=== PATIENT | male | born 1970 | race Two or more races ===

== ENCOUNTER 2017-03-13 10:08 | Inpatient (IN) | payer OTHER ==
[2017-03-13 12:10] VITALS: BMI 23.7
--- NOTE | 2017-03-13 15:49 | HP ---
CIWA Score - CIWA Score Nausea/Vomitin Muscle Tremors: 3 Anxiety: 3 Agitation: 4-Moderately Restless Paroxysmal Sweats: 3 Orientation: 0-Oriented Tacttile Disturbances: 2-Mild Itch/Numbness/Burn Auditory Disturbances: 2-Mild Harshness/Frighten Visual Disturbances: 2-Mild Sensitivity Headache: 3-Moderate CIWA-Ar Total Score: 27 Admission ROS [facility] - HPI Chief Complaint: "I'm here to get help and to become a better person." Pt. is here to Detox from Alcohol. Allergies/Adverse Reactions: Allergies Allergy/AdvReac Type Severity Reaction Status Date / Time Fish Containing Products Allergy Severe Rash Verified 03/13/17 14:00 NKDA Allergy Uncoded 03/13/17 14:00 History of Present Illness: Pt. is a 46 YO male here to detox from Alcohol. This is pt.'s first Detox admission to [facility]. Exam Limitations: No Limitations - Ebola screening Have you traveled outside of the country in the last 21 days: No Have you had contact with anyone from an Ebola affected area: No Have you been sick,other than usual withdrawal symptoms: No Do you have a fever: No - Review of Systems Constitutional: Chills, Diaphoresis, Fever, Malaise, Night Sweats, Changes in sleep EENT: reports: Blurred Vision, Recent change in vision, Nose Congestion, Sinus Pressure, Dental Problems (Missing 1 tooth (upper mouth).) Respiratory: reports: SOB with Exertion Cardiac: reports: Palpitations GI: reports: Diarrhea, Nausea, Indigestion, Abdominal cramping : reports: No Symptoms Reported Musculoskeletal: reports: Back Pain, Joint Pain (Left knee (X approx. 1 year, pt. uncertain why).), Joint Stiffness (Left knee (X approx. 1 year, pt. uncertain why).) Integumentary: reports: No Symptoms Reported Neuro: reports: Headache, Numbness (Left ankle and toes.), Tingling (Left ankle and toes.), Tremors Endocrine: reports: No Symptoms Reported Hematology: reports: Easy Bruising Psychiatric: reports: Judgement Intact, Mood/Affect Appropiate, Orientated x3, Anxious, Depressed (On med.) Other Systems: Reviewed and Negative Patient History - Patient Medical History Hx Anemia: No Hx Asthma: Yes (Uses Albuterol Inhaler.) Hx Chronic Obstructive Pulmonary Disease (COPD): No Hx Cancer: No Hx Cardiac Disorders: No Hx Congestive Heart Failure: No Hx Hypertension: Yes (On med.) Hx Hypercholesterolemia: No Hx Pacemaker: No HX Cerebrovascular Accident: No Hx Seizures: No Hx Dementia: No Hx Diabetes: Yes (NIDDM) Hx Gastrointestinal Disorders: No Hx Liver Disease: No Hx Genitourinary Disorders: No Hx Sexually Transmitted Disorders: Yes (gonorrhea at age 14; Treated.) Hx Renal Disease (ESRD): No Hx Thyroid Disease: No Hx Human Immunodeficiency Virus (HIV): No (Last Tested: 02/2017: NEGATIVE.) Hx Hepatitis C: No (Last Tested Approx. 2 years ago: NEGATIVE.) Hx Depression: Yes (On meds.) Hx Suicide Attempt: Yes (cut left arm a year ago; PATIENT DENIES CURRENT SI / HI.) Hx Bipolar Disorder: Yes (On med.) Hx Schizophrenia: Yes (On med.) - Patient Surgical History Past Surgical History: No Hx Neurologic Surgery: No Hx Cataract Extraction: No Hx Cardiac Surgery: No Hx Lung Surgery: No Hx Breast Surgery: No Hx Breast Biopsy: No Hx Abdominal Surgery: No Hx Appendectomy: No Hx Cholecystectomy: No Hx Genitourinary Surgery: No Hx Section: No Hx Orthopedic Surgery: No Anesthesia Reaction: No - PPD History Previous Implant?: Yes Documented Results: Negative w/o proof Implanted On Prior R Admission?: No PPD to be Administered?: Yes - Reproductive History Patient is a Female of Child Bearing Age (11 -55 yrs old): No (PATIENT IS MALE.) - Smoking Cessation Smoking history: Current every day smoker Have you smoked in the past 12 months: Yes Aproximately how many cigarettes per day: 20 Cigars Per Day: 0 Hx Chewing Tobacco Use: No Initiated information on smoking cessation: Yes 'Breaking Loose' booklet given: 03/13/17 (GIVEN ON UNIT.) - Substance & Tx. History Hx Alcohol Use: Yes Hx Substance Use: Yes Substance Use Type: Alcohol, Cocaine Hx Substance Use Treatment: Yes (1 Previous Detox admission at [facility] (2017).) - Substances Abused Crack Route: Smoking Frequency: Daily Amount used: $80-100 Age of first use: 45 Date of Last Use: 03/13/17 Alcohol-beer/tri Route: Oral Frequency: Daily Amount used: 1-6 pk./1 pt. Age of first use: 15 Date of Last Use: 03/13/17 Family Disease History - Family Disease History Family Disease History: Diabetes: Grandparent (Arthritis.), Father (Anemia, .), Sister, Other: Grandparent, Father, Mother (Arthritis.) Admission Physical Exam [facility] - Vital Signs Vital Signs: Vital Signs - 24 hr 03/13/17 12:08 Temperature 98 F Pulse Rate 102 H Respiratory 20 Rate Blood Pressure 143/92 - Physical General Appearance: Yes: Appropriately Dressed, Mild Distress, Thin, Tremorous, Sweating, Anxious HEENTM: Yes: Hearing grossly Normal, Normocephalic, Normal Voice, NADIRA, Pharynx Normal Respiratory: Yes: Chest Non-Tender, Lungs Clear, No Respiratory Distress Neck: Yes: No masses,lesions,Nodules, Supple, Trachea in good position Breast: Yes: Breast Exam Deferred Cardiology: Yes: Regular Rhythm, Regular Rate, S1, S2 Abdominal: Yes: Normal Bowel Sounds, Non Tender, Flat, Soft Genitourinary: Yes: Within Normal Limits Back: Yes: Decreased Range of Motion, Vertebral Tenderness Musculoskeletal: Yes: Gait Steady, Back pain, Joint Stiffness (Left knee.) Extremities: Yes: Tremors Neurological: Yes: Fully Oriented, Alert, Normal Mood/Affect, Normal Response Integumentary: Yes: Normal Color, Warm Lymphatic: Yes: Within Normal Limits - Diagnostic (1) Alcohol dependence with uncomplicated withdrawal Current Visit: Yes Status: Acute (2) Cocaine dependence, uncomplicated Current Visit: Yes Status: Acute (3) Hypertension Current Visit: Yes Status: Chronic Qualifiers: Hypertension type: essential hypertension Qualified Code(s): I10 - Essential (primary) hypertension (4) Type 2 diabetes mellitus Current Visit: Yes Status: Chronic Qualifiers: Diabetes mellitus complication status: with unspecified complications Diabetes mellitus parts counterman insulin use: without parts counterman use Qualified Code(s): E11.8 - Type 2 diabetes mellitus with unspecified complications (5) Nicotine dependence Current Visit: Yes Status: Chronic Qualifiers: Nicotine product type: cigarettes Substance use status: uncomplicated Qualified Code(s): F17.210 - Nicotine dependence, cigarettes, uncomplicated (6) Asthma Current Visit: Yes Status: Chronic Qualifiers: Asthma severity: mild intermittent Asthma complication type: uncomplicated Qualified Code(s): J45.20 - Mild intermittent asthma, uncomplicated (7) History of bipolar disorder Current Visit: Yes Status: Chronic (8) History of schizophrenia Current Visit: Yes Status: Chronic Cleared for Admission [facility] - Detox or Rehab [facility] Level of Care: Medically Managed Detox Regimen/Protocol: Librium [facility] Breath Alcohol Content Breath Alcohol Content: 0 Urine Drug Screen - Results Drug Screen Negative: No Urine Drug Screen Results: ELIECER-Cocaine, BZO-Benzodiazepines
[2017-03-13] MEDS ORDERED: ACETAMINOPHEN 325 MG TABLET (FP) PO PRN (16:34)
[2017-03-13] MEDS ORDERED: NICOTINE POLACRILEX 2 MG GUM BC PRN (16:34)
[2017-03-13] MEDS ORDERED: P-EPHED 60MG/TRIPROLIDI 2.5MG TABLET PO PRN (16:34)
[2017-03-13] MEDS ORDERED: chlordiazePOXIDE HCL 25 MG CAPSULE PO PRN (16:34)
[2017-03-13] MEDS ORDERED: MAGNESIUM CITRATE 300 ML BOTTLE PO PRN (16:34)
[2017-03-13] MEDS ORDERED: MAG HYDROX/AL HYDROX/SIMETH 30 ML UNIT-DOSE CUP PO PRN (16:34)
[2017-03-13] MEDS ORDERED: MENTHOL/PHENOL 1 EACH UD MM PRN (16:34)
[2017-03-13] MEDS ORDERED: LOPERAMIDE HCL 2 MG CAPSULE PO PRN (16:34)
[2017-03-13] MEDS ORDERED: guaiFENesin/D-METHORPHAN HB 10 ML UNIT-DOSE CUPS PO PRN (16:34)
[2017-03-13] MEDS ORDERED: hydrOXYzine PAMOATE 50 MG CAPSULE (FP) PO PRN (16:34)
[2017-03-13] MEDS ORDERED: MAGNESIUM HYDROX 2400MG/30ML ORAL SUSPENSION 30 ML CUP PO PRN (16:34)
[2017-03-13] MEDS ORDERED: IBUPROFEN 400 MG TABLET (FP) PO PRN (16:34)
[2017-03-13] MEDS ORDERED: ALBUTEROL SO4 6.7 GM HFA INHALER IH PRN (16:40)
[2017-03-13] MEDS ORDERED: ARTIFICIAL TEARS (POLYVINYL ALCOHOL 1.4%) OPTH DROPS OU PRN (16:45)
[2017-03-13] MEDS ORDERED: chlordiazePOXIDE HCL 25 MG CAPSULE PO ONE (17:45)
[2017-03-13] MEDS ORDERED: LIDOCAINE 5% TOPICAL PATCH TP ONE (17:45)
[2017-03-13] MEDS: chlordiazePOXIDE HCL 25 MG CAPSULE PO SCH ×2 (18:01→22:58)
[2017-03-13] MEDS: NICOTINE 21 MG/24 HOURS TOPICAL PATCH TD SCH (18:02)
[2017-03-13] MEDS: LISINOPRIL 20 MG TABLET (FP) PO SCH (18:03)
[2017-03-13] MEDS ORDERED: LIDOCAINE PATCH REMOVAL MC ONE (22:00)
[2017-03-13] MEDS: diphenhydrAMINE HCL 50 MG CAPSULE PO PRN (22:17)
[2017-03-13] MEDS: THIAMINE HCL 100 MG TABLET (FP) PO SCH (22:17)
[2017-03-13 22:28] LABS: URINE APPEARANCE CLEAR; URINE BILIRUBIN NEGATIVE (NEGATIVE); URINE BLOOD NEGATIVE (NEGATIVE); URINE COLOR LTYELLOW; URINE GLUCOSE (UA) 3+ (NEGATIVE); URINE KETONE NEGATIVE (NEGATIVE); URINE LEUK ESTERASE NEGATIVE (NEGATIVE); URINE NITRITE NEGATIVE (NEGATIVE); URINE PROTEIN NEGATIVE (NEGATIVE); URINE UROBILINOGEN NEGATIVE E.U./dl (0.2-1.0)
[2017-03-14] MEDS: chlordiazePOXIDE HCL 25 MG CAPSULE PO SCH ×4 (06:22→22:25)
[2017-03-14] MEDS: INSULIN SLIDING SCALE (NOVOLOG) 1 VIAL SQ SCH ×2 (06:49→16:55)
[2017-03-14] MEDS: metFORMIN HCL 500 MG TABLET (FP) PO SCH ×2 (06:49→16:55)
[2017-03-14 09:57] LABS: MCH 30.4 pg (25.7-33.7); MCHC 33.6 g/dl (32.0-35.9); MEAN CELL VOLUME 90.5 fl (80-96); MEAN PLT VOLUME 9.6 fl (7.5-11.1); PLATELET COUNT 214 K/MM3 (134-434); RDW 12.9 % (11.9-15.9); WHITE BLOOD COUNT 10.7 K/mm3 (4.0-10.0)
[2017-03-14 10:36] LABS: ALBUMIN 4.2 g/dl (3.4-5.0); ALK PHOS 88 U/L (45-117); ANION GAP 13 (8-16); BILIRUBIN,TOTAL 0.6 mg/dL (0.2-1.0); CALCIUM 9.5 mg/dL (8.5-10.1); CO2 26 mmol/L (21-32); COCKROFT - GAULT 108.81; CREATININE 1.1 mg/dL (0.7-1.3); GLUCOSE,RANDOM 288 mg/dL (74-106); SGOT/AST 14 U/L (15-37); SGPT/ALT 25 U/L (12-78); TOT PROT 7.2 g/dl (6.4-8.2)
[2017-03-14] MEDS: NICOTINE 21 MG/24 HOURS TOPICAL PATCH TD SCH (10:46)
[2017-03-14] MEDS: LISINOPRIL 20 MG TABLET (FP) PO SCH (10:47)
[2017-03-14] MEDS: PRENATAL VITAMINS W/ FOLIC ACID TABLET (FP) PO SCH (10:50)
--- NOTE | 2017-03-14 11:17 | CONSULT ---
[facility] Psychiatric Consult - Data Date of interview: 03/14/17 Admission source: [facility] Identifying data: First admission to [facility] for this 46 y/o [place] male seeking detox treatment for alcohol and cocaine (crack) dependence.Patient is single,a father of an undetermined number of children,domiciled,unemployed and supported on SSI benefits. Substance Abuse History: - Smoking Cessation. Smoking history: Current every day smoker. Have you smoked in the past 12 months: Yes. Aproximately how many cigarettes per day: 20. Cigars Per Day: 0. Hx Chewing Tobacco Use: No. Initiated information on smoking cessation: Yes. 'Breaking Loose' booklet given : 03/13/17 (GIVEN ON UNIT.). - Substance & Tx. History. Hx Alcohol Use: Yes. Hx Substance Use: Yes. Substance Use Type: Alcohol, Cocaine. Hx Substance Use Treatment: Yes (1 Previous Detox admission at [facility] (2017).). - Substances Abused. Crack. Route: Smoking. Frequency: Daily. Amount used: $80-100. Age of first use: 45. Date of Last Use: 03/13/17. Alcohol-beer/tri. Route: Oral. Frequency: Daily. Amount used: 1-6 pk./1 pt. Age of first use: 15. Date of Last Use: 03/13/17. Confirmed by patient. Medical History: Hypertension,arthritis,diabetes mellitus,scoliosis,bronchial asthma and a history of treatment for gonorrhea (during adolescence). Psychiatric History: Patient denies history of psychiatric hospitalizations.Known to [facility].Mr Vanessa indicates past treatment with amitryptiline 100 mg/hs.Diagnosed with MDD and insomnia.Non-adherent to [facility] care.Patient admits to a history of suicide attempts via self-mutilation ( cutting). Physical/Sexual Abuse/Trauma History: Patient denies history of sexual abuse.He reports a history of 22 consecutive years in detention (homicide) from age 17 to age 39.Traumatized by his years of incarceration. Additional Comment: Urine Drug Screen Results: ELIECER-Cocaine, BZO- Benzodiazepines.Noted. Mental Status Exam - Mental Status Exam Alert and Oriented to: Time, Place, Person Cognitive Function: Good Patient Appearance: Well Groomed (tall stature,tattoos over arms,neck) Mood: Anxious, Apprehensive Affect: Mood Congruent Patient Behavior: Fatigued, Appropriate, Cooperative Speech Pattern: Clear Voice Loudness: Normal Thought Process: Goal Oriented Thought Disorder: Not Present Hallucinations: Denies Suicidal Ideation: Denies Homicidal Ideation: Denies Insight/Judgement: Poor Sleep: Poorly, Difficulty falling asleep Appetite: Good Muscle strength/Tone: Normal Gait/Station: Normal Psychiatric Findings - Problem List ([place] 1, 2,3) (1) Alcohol dependence with uncomplicated withdrawal Current Visit: Yes Status: Acute (2) Cocaine dependence, uncomplicated Current Visit: Yes Status: Acute (3) Nicotine dependence Current Visit: Yes Status: Acute Qualifiers: Nicotine product type: cigarettes Substance use status: uncomplicated Qualified Code(s): F17.210 - Nicotine dependence, cigarettes, uncomplicated (4) Substance induced mood disorder Current Visit: Yes Status: Acute (5) History of bipolar disorder Current Visit: Yes Status: Chronic (6) Asthma Current Visit: Yes Status: Chronic Qualifiers: Asthma severity: mild intermittent Asthma complication type: uncomplicated Qualified Code(s): J45.20 - Mild intermittent asthma, uncomplicated (7) Hypertension Current Visit: Yes Status: Chronic Qualifiers: Hypertension type: essential hypertension Qualified Code(s): I10 - Essential (primary) hypertension (8) Type 2 diabetes mellitus Current Visit: Yes Status: Chronic Qualifiers: Diabetes mellitus complication status: with unspecified complications Diabetes mellitus watermelon inspector insulin use: without group home use Qualified Code(s): E11.8 - Type 2 diabetes mellitus with unspecified complications; Z79.4 - intermediate accountant (current) use of insulin (9) Insomnia Current Visit: Yes Status: Acute - Initial Treatment Plan Initial Treatment Plan: Psychoeducation.Detoxification.Medication : amitriptyline 50 mg po hs.Ordered.Side effects/benefits discussed with patient.He us in agreement with this careplan.Observation.
--- NOTE | 2017-03-14 11:41 | EKG ---
Test Reason : Blood Pressure : / mmHG Vent. Rate : 077 BPM Atrial Rate : 077 BPM P-R Int : 192 ms QRS Dur : 092 ms QT Int : 358 ms P-R-T Axes : 046 085 056 degrees QTc Int : 405 ms NORMAL SINUS RHYTHM NORMAL ECG NO PREVIOUS ECGS AVAILABLE Confirmed by BERNARDO PEREZ, MAGDA ([id number]) on 03/14/2017 11:41:05 AM Referred By: Confirmed By:MAGDA CHANG MD
--- NOTE | 2017-03-14 12:16 | PN ---
S CIWA - CIWA Score Nausea/Vomitin Muscle Tremors: 3 Anxiety: 4-Mod. Anxious/Guarded Agitation: 3 Paroxysmal Sweats: 2 Orientation: 0-Oriented Tacttile Disturbances: 1-Very Mild Itch/Numbness Auditory Disturbances: 0-None Visual Disturbances: 2-Mild Sensitivity Headache: 0-None Present CIWA-Ar Total Score: 18 S Progress Note (SOAP) Subjective: Nausea, Tremors, Sweating, Body aches. Objective: PT. A & O X 3, OBSERVED AMBULATING ON UNIT. NO ACUTE DISTRESS. 03/14/17 12:13 Vital Signs Temperature 96.6 F L 03/14/17 10:09 Pulse Rate 81 03/14/17 10:09 Respiratory Rate 18 03/14/17 10:09 Blood Pressure 136/88 03/14/17 10:09 O2 Sat by Pulse Oximetry (%) Laboratory Tests 03/13/17 03/13/17 03/14/17 14:23 21:30 06:00 WBC 10.7 H RBC 5.15 Hgb 15.7 Hct 46.6 MCV 90.5 MCHC 33.6 RDW 12.9 Plt Count 214 MPV 9.6 Sodium Potassium Chloride Carbon Dioxide Anion Gap BUN Creatinine Creat Clearance w eGFR POC Glucometer 336 Random Glucose Calcium Total Bilirubin AST ALT Alkaline Phosphatase Total Protein Albumin Urine Color Ltyellow Urine Appearance Clear Urine pH 5.0 Urine Protein Negative Urine Glucose (UA) 3+ H Urine Ketones Negative Urine Blood Negative Urine Nitrite Negative Urine Bilirubin Negative Urine Urobilinogen Negative Ur Leukocyte Esterase Negative 03/14/17 03/14/17 06:00 06:14 WBC RBC Hgb Hct MCV MCHC RDW Plt Count MPV Sodium 137 Potassium 4.0 Chloride 98 Carbon Dioxide 26 Anion Gap 13 BUN 10 Creatinine 1.1 Creat Clearance w eGFR > 60 POC Glucometer 447 Random Glucose 288 H Calcium 9.5 Total Bilirubin 0.6 AST 14 L ALT 25 Alkaline Phosphatase 88 Total Protein 7.2 Albumin 4.2 Urine Color Urine Appearance Urine pH Urine Protein Urine Glucose (UA) Urine Ketones Urine Blood Urine Nitrite Urine Bilirubin Urine Urobilinogen Ur Leukocyte Esterase LABS NOTED. Assessment: 03/14/17 12:14 WITHDRAWAL SYMPTOMS. Plan: CONTINUE DETOX.
[2017-03-14 12:37] LABS: SICKLE CELL SCREEN NEGATIVE (NEGATIVE)
[2017-03-14] MEDS ORDERED: INSULIN (NOVOLOG) ASPART 100 UNITS/ML 10ML VIAL ONE (16:48)
[2017-03-14] MEDS: THIAMINE HCL 100 MG TABLET (FP) PO SCH (22:24)
[2017-03-14] MEDS: AMITRIPTYLINE HCL 25 MG TABLET (FP) PO SCH (22:25)
[2017-03-15] MEDS: chlordiazePOXIDE HCL 25 MG CAPSULE PO SCH ×2 (07:56→11:46)
[2017-03-15] MEDS ORDERED: INSULIN (NOVOLOG) ASPART 100 UNITS/ML 10ML VIAL ONE ×2 (08:27→16:32)
[2017-03-15] MEDS: metFORMIN HCL 500 MG TABLET (FP) PO SCH ×2 (08:30→16:37)
[2017-03-15] MEDS: INSULIN SLIDING SCALE (NOVOLOG) 1 VIAL SQ SCH ×2 (08:30→16:36)
[2017-03-15] MEDS: NICOTINE 21 MG/24 HOURS TOPICAL PATCH TD SCH (10:45)
[2017-03-15] MEDS: PRENATAL VITAMINS W/ FOLIC ACID TABLET (FP) PO SCH (11:45)
[2017-03-15] MEDS: LISINOPRIL 20 MG TABLET (FP) PO SCH (11:45)
--- NOTE | 2017-03-15 12:14 | PN ---
[facility] CIWA - CIWA Score Nausea/Vomitin-Mild Nausea/No Vomiting Muscle Tremors: 3 Anxiety: 3 Agitation: 2 Paroxysmal Sweats: 3 Orientation: 0-Oriented Tacttile Disturbances: 2-Mild Itch/Numbness/Burn Auditory Disturbances: 0-None Visual Disturbances: 3-Moderate Sensitivity Headache: 0-None Present CIWA-Ar Total Score: 17 S Progress Note (SOAP) Subjective: Sweating, Anxious, Body Aches. Objective: PT. A & O X 2 (DISORIENTED ABOUT DAY /DATE). NO ACUTE DISTRESS. 03/15/17 12:11 Vital Signs Temperature 96.8 F L 03/15/17 10:12 Pulse Rate 84 03/15/17 10:12 Respiratory Rate 18 03/15/17 10:12 Blood Pressure 121/75 03/15/17 10:12 O2 Sat by Pulse Oximetry (%) Laboratory Tests 03/13/17 03/13/17 03/14/17 14:23 21:30 06:00 WBC 10.7 H RBC 5.15 Hgb 15.7 Hct 46.6 MCV 90.5 MCHC 33.6 RDW 12.9 Plt Count 214 MPV 9.6 Sickle Cell Screen Negative Sodium Potassium Chloride Carbon Dioxide Anion Gap BUN Creatinine Creat Clearance w eGFR POC Glucometer 336 Random Glucose Calcium Total Bilirubin AST ALT Alkaline Phosphatase Total Protein Albumin Urine Color Ltyellow Urine Appearance Clear Urine pH 5.0 Ur Specific [place] 1.010 Urine Protein Negative Urine Glucose (UA) 3+ H Urine Ketones Negative Urine Blood Negative Urine Nitrite Negative Urine Bilirubin Negative Urine Urobilinogen Negative Ur Leukocyte Esterase Negative RPR Titer 03/14/17 03/14/17 03/14/17 06:00 06:00 06:14 WBC RBC Hgb Hct MCV MCHC RDW Plt Count MPV Sickle Cell Screen Sodium 137 Potassium 4.0 Chloride 98 Carbon Dioxide 26 Anion Gap 13 BUN 10 Creatinine 1.1 Creat Clearance w eGFR > 60 POC Glucometer 447 Random Glucose 288 H Calcium 9.5 Total Bilirubin 0.6 AST 14 L ALT 25 Alkaline Phosphatase 88 Total Protein 7.2 Albumin 4.2 Urine Color Urine Appearance Urine pH Ur Specific [place] Urine Protein Urine Glucose (UA) Urine Ketones Urine Blood Urine Nitrite Urine Bilirubin Urine Urobilinogen Ur Leukocyte Esterase RPR Titer Nonreactive 03/14/17 03/15/17 16:18 07:06 WBC RBC Hgb Hct MCV MCHC RDW Plt Count MPV Sickle Cell Screen Sodium Potassium Chloride Carbon Dioxide Anion Gap BUN Creatinine Creat Clearance w eGFR POC Glucometer 353 319 Random Glucose Calcium Total Bilirubin AST ALT Alkaline Phosphatase Total Protein Albumin Urine Color Urine Appearance Urine pH Ur Specific [place] Urine Protein Urine Glucose (UA) Urine Ketones Urine Blood Urine Nitrite Urine Bilirubin Urine Urobilinogen Ur Leukocyte Esterase RPR Titer LABS NOTED. Assessment: 03/15/17 12:14 WITHDRAWAL SYMPTOMS. Plan: CONTINUE DETOX.
[2017-03-15] MEDS: chlordiazePOXIDE 5 MG CAPSULE PO SCH ×2 (16:39→22:43)
[2017-03-15] MEDS: diphenhydrAMINE HCL 50 MG CAPSULE PO PRN (22:37)
[2017-03-15] MEDS: THIAMINE HCL 100 MG TABLET (FP) PO SCH (22:37)
[2017-03-15] MEDS: AMITRIPTYLINE HCL 25 MG TABLET (FP) PO SCH (22:37)
[2017-03-16] MEDS: chlordiazePOXIDE 5 MG CAPSULE PO SCH ×2 (06:19→10:39)
[2017-03-16] MEDS: INSULIN SLIDING SCALE (NOVOLOG) 1 VIAL SQ SCH ×2 (06:58→17:02)
[2017-03-16] MEDS: metFORMIN HCL 500 MG TABLET (FP) PO SCH ×2 (06:58→17:01)
[2017-03-16] MEDS: PRENATAL VITAMINS W/ FOLIC ACID TABLET (FP) PO SCH (10:39)
[2017-03-16] MEDS: LISINOPRIL 20 MG TABLET (FP) PO SCH (10:39)
[2017-03-16] MEDS: NICOTINE 21 MG/24 HOURS TOPICAL PATCH TD SCH (10:39)
--- NOTE | 2017-03-16 13:05 | PN ---
[facility] Progress Note (SOAP) Subjective: Body Aches, Anxious, Sweating. Objective: PT. A & O X 3, OBSERVED AMBULATING ON UNIT. NO ACUTE DISTRESS. PT. DENIES CHEST PAIN. 03/16/17 13:02 Vital Signs Temperature 97.0 F L 03/16/17 10:05 Pulse Rate 96 H 03/16/17 10:05 Respiratory Rate 18 03/16/17 10:05 Blood Pressure 122/83 03/16/17 10:05 O2 Sat by Pulse Oximetry (%) Laboratory Tests 03/13/17 03/13/17 03/14/17 14:23 21:30 06:00 WBC 10.7 H RBC 5.15 Hgb 15.7 Hct 46.6 MCV 90.5 MCHC 33.6 RDW 12.9 Plt Count 214 MPV 9.6 Sickle Cell Screen Negative Sodium Potassium Chloride Carbon Dioxide Anion Gap BUN Creatinine Creat Clearance w eGFR POC Glucometer 336 Random Glucose Calcium Total Bilirubin AST ALT Alkaline Phosphatase Total Protein Albumin Urine Color Ltyellow Urine Appearance Clear Urine pH 5.0 Ur Specific [place] 1.010 Urine Protein Negative Urine Glucose (UA) 3+ H Urine Ketones Negative Urine Blood Negative Urine Nitrite Negative Urine Bilirubin Negative Urine Urobilinogen Negative Ur Leukocyte Esterase Negative RPR Titer 03/14/17 03/14/17 03/14/17 06:00 06:00 06:14 WBC RBC Hgb Hct MCV MCHC RDW Plt Count MPV Sickle Cell Screen Sodium 137 Potassium 4.0 Chloride 98 Carbon Dioxide 26 Anion Gap 13 BUN 10 Creatinine 1.1 Creat Clearance w eGFR > 60 POC Glucometer 447 Random Glucose 288 H Calcium 9.5 Total Bilirubin 0.6 AST 14 L ALT 25 Alkaline Phosphatase 88 Total Protein 7.2 Albumin 4.2 Urine Color Urine Appearance Urine pH Ur Specific [place] Urine Protein Urine Glucose (UA) Urine Ketones Urine Blood Urine Nitrite Urine Bilirubin Urine Urobilinogen Ur Leukocyte Esterase RPR Titer Nonreactive 03/14/17 03/15/17 03/15/17 16:18 07:06 16:23 WBC RBC Hgb Hct MCV MCHC RDW Plt Count MPV Sickle Cell Screen Sodium Potassium Chloride Carbon Dioxide Anion Gap BUN Creatinine Creat Clearance w eGFR POC Glucometer 353 319 409 Random Glucose Calcium Total Bilirubin AST ALT Alkaline Phosphatase Total Protein Albumin Urine Color Urine Appearance Urine pH Ur Specific [place] Urine Protein Urine Glucose (UA) Urine Ketones Urine Blood Urine Nitrite Urine Bilirubin Urine Urobilinogen Ur Leukocyte Esterase RPR Titer 03/16/17 06:09 WBC RBC Hgb Hct MCV MCHC RDW Plt Count MPV Sickle Cell Screen Sodium Potassium Chloride Carbon Dioxide Anion Gap BUN Creatinine Creat Clearance w eGFR POC Glucometer 324 Random Glucose Calcium Total Bilirubin AST ALT Alkaline Phosphatase Total Protein Albumin Urine Color Urine Appearance Urine pH Ur Specific [place] Urine Protein Urine Glucose (UA) Urine Ketones Urine Blood Urine Nitrite Urine Bilirubin Urine Urobilinogen Ur Leukocyte Esterase RPR Titer LABS NOTED. Assessment: 03/16/17 13:03 WITHDRAWAL SYMPTOMS. Plan: CONTINUE DETOX. ADVISED PATIENT TO FOLLOW-UP WITH [facility] AFTER DISCHARGE FROM DETOX FOR GENERAL MEDICAL ASSESSMENT AND FOR FOLLOW-UP CARE OF DIABETES MELLITUS AND HYPERTENSION.
[2017-03-16] MEDS ORDERED: INSULIN (NOVOLOG) ASPART 100 UNITS/ML 10ML VIAL ONE ×2 (17:04→21:56)
[2017-03-16] MEDS: chlordiazePOXIDE HCL 10 MG CAPSULE PO SCH ×2 (17:05→22:00)
--- NOTE | 2017-03-16 19:34 | PN ---
[facility] Progress Note Note: Received report from RN about elevated afternoon AC BGM. Regular Insulin administered (12 Units) according to Sliding Scale Protocol. Additional BGM X 1 with accompanying Regular Insulin Sliding Scale Protocol ordered for 9 PM this evening for F/U. Micah Munson NP
[2017-03-16] MEDS ORDERED: INSULIN SLIDING SCALE (NOVOLOG) 1 VIAL SQ ONE (21:00)
[2017-03-16] MEDS: AMITRIPTYLINE HCL 25 MG TABLET (FP) PO SCH (21:59)
[2017-03-16] MEDS: THIAMINE HCL 100 MG TABLET (FP) PO SCH (21:59)
[2017-03-16] MEDS: diphenhydrAMINE HCL 50 MG CAPSULE PO PRN (22:00)
[2017-03-17] MEDS: chlordiazePOXIDE HCL 10 MG CAPSULE PO SCH (06:28)
[2017-03-17] MEDS: metFORMIN HCL 500 MG TABLET (FP) PO SCH (06:29)
[2017-03-17 06:30] VITALS: BP 125/81; PULSE 92; TEMP 98.2
[2017-03-17] MEDS: INSULIN SLIDING SCALE (NOVOLOG) 1 VIAL SQ SCH (06:30)
[2017-03-17] MEDS ORDERED: INSULIN (NOVOLOG) ASPART 100 UNITS/ML 10ML VIAL ONE (06:31)
--- NOTE | 2017-03-17 13:44 | DS ---
[facility] Detox Discharge Summary Admission Date: 03/13/17 Discharge Date: 03/17/17 - History Present History: Alcohol Dependence, Cocaine Dependence Additional Comments: ADVISED PATIENT TO FOLLOW-UP WITH [facility] AFTER DISCHARGE FROM DETOX FOR GENERAL MEDICAL ASSESSMENT. Pertinent Past History: Asthma, NIDDM, HTN, Depression, Bipolar Disorder, Schizophrenia. - Physical Exam Results Vital Signs: Vital Signs Temperature 98.2 F 03/17/17 06:29 Pulse Rate 92 H 03/17/17 06:29 Respiratory Rate 18 03/17/17 06:29 Blood Pressure 125/81 03/17/17 06:29 O2 Sat by Pulse Oximetry (%) Pertinent Admission Physical Exam Findings: WITHDRAWAL SYMPTOMS. Laboratory Tests 03/13/17 03/13/17 03/14/17 14:23 21:30 06:00 WBC 10.7 H RBC 5.15 Hgb 15.7 Hct 46.6 MCV 90.5 MCHC 33.6 RDW 12.9 Plt Count 214 MPV 9.6 Sickle Cell Screen Negative Sodium Potassium Chloride Carbon Dioxide Anion Gap BUN Creatinine Creat Clearance w eGFR POC Glucometer 336 Random Glucose Calcium Total Bilirubin AST ALT Alkaline Phosphatase Total Protein Albumin Urine Color Ltyellow Urine Appearance Clear Urine pH 5.0 Ur Specific [place] 1.010 Urine Protein Negative Urine Glucose (UA) 3+ H Urine Ketones Negative Urine Blood Negative Urine Nitrite Negative Urine Bilirubin Negative Urine Urobilinogen Negative Ur Leukocyte Esterase Negative RPR Titer 03/14/17 03/14/17 03/14/17 06:00 06:00 06:14 WBC RBC Hgb Hct MCV MCHC RDW Plt Count MPV Sickle Cell Screen Sodium 137 Potassium 4.0 Chloride 98 Carbon Dioxide 26 Anion Gap 13 BUN 10 Creatinine 1.1 Creat Clearance w eGFR > 60 POC Glucometer 447 Random Glucose 288 H Calcium 9.5 Total Bilirubin 0.6 AST 14 L ALT 25 Alkaline Phosphatase 88 Total Protein 7.2 Albumin 4.2 Urine Color Urine Appearance Urine pH Ur Specific [place] Urine Protein Urine Glucose (UA) Urine Ketones Urine Blood Urine Nitrite Urine Bilirubin Urine Urobilinogen Ur Leukocyte Esterase RPR Titer Nonreactive 03/14/17 03/15/17 03/15/17 16:18 07:06 16:23 WBC RBC Hgb Hct MCV MCHC RDW Plt Count MPV Sickle Cell Screen Sodium Potassium Chloride Carbon Dioxide Anion Gap BUN Creatinine Creat Clearance w eGFR POC Glucometer 353 319 409 Random Glucose Calcium Total Bilirubin AST ALT Alkaline Phosphatase Total Protein Albumin Urine Color Urine Appearance Urine pH Ur Specific [place] Urine Protein Urine Glucose (UA) Urine Ketones Urine Blood Urine Nitrite Urine Bilirubin Urine Urobilinogen Ur Leukocyte Esterase RPR Titer 03/16/17 03/16/17 03/17/17 06:09 21:54 06:27 WBC RBC Hgb Hct MCV MCHC RDW Plt Count MPV Sickle Cell Screen Sodium Potassium Chloride Carbon Dioxide Anion Gap BUN Creatinine Creat Clearance w eGFR POC Glucometer 324 328 299 Random Glucose Calcium Total Bilirubin AST ALT Alkaline Phosphatase Total Protein Albumin Urine Color Urine Appearance Urine pH Ur Specific [place] Urine Protein Urine Glucose (UA) Urine Ketones Urine Blood Urine Nitrite Urine Bilirubin Urine Urobilinogen Ur Leukocyte Esterase RPR Titer LABS NOTED. - Treatment Hospital Course: Detox Protocol Followed, Detoxed Safely, Responded well, Discharged Condition Good Patient has Accepted a Rehab Referral to: PT. ELECTING TO GO HOME. 12-STEP/AA OUTPATIENT PROGRAMS RECOMMENDED. - Medication Discharge Medications: Ambulatory Orders Albuterol Sulfate Inhaler - [Ventolin Hfa Inhaler -] 2 inh PO Q4H PRN 03/13/17 Amitriptyline HCl [Elavil -] 100 mg PO HS 03/13/17 Lisinopril [Prinivil] 20 mg PO DAILY 03/13/17 Metformin HCl [Glucophage] 1,000 mg PO BID 03/13/17 Amitriptyline HCl [Elavil -] 50 mg PO DAILY #30 tablet 03/14/17 - Diagnosis (1) Alcohol dependence with uncomplicated withdrawal Status: Acute (2) Cocaine dependence, uncomplicated Status: Acute (3) Hypertension Status: Chronic Qualifiers: Hypertension type: essential hypertension Qualified Code(s): I10 - Essential (primary) hypertension (4) Type 2 diabetes mellitus Status: Chronic Qualifiers: Diabetes mellitus complication status: with unspecified complications Diabetes mellitus roasterman insulin use: without senior living use Qualified Code(s): E11.8 - Type 2 diabetes mellitus with unspecified complications; Z79.4 - shelter (current) use of insulin (5) Nicotine dependence Status: Chronic Qualifiers: Nicotine product type: cigarettes Substance use status: uncomplicated Qualified Code(s): F17.210 - Nicotine dependence, cigarettes, uncomplicated (6) Asthma Status: Chronic Qualifiers: Asthma severity: mild intermittent Asthma complication type: uncomplicated Qualified Code(s): J45.20 - Mild intermittent asthma, uncomplicated (7) History of bipolar disorder Status: Chronic (8) History of schizophrenia Status: Chronic (9) Insomnia Status: Acute Qualifiers: Insomnia type: unspecified Qualified Code(s): G47.00 - Insomnia, unspecified (10) Substance induced mood disorder Status: Acute - AMA Did Patient Leave Against Medical Advice: No
== END 2017-03-17 09:00 | disposition home or self-care (01) | DRG 774 ==
LOC: YASAS 10:08 → Y3N 15:43
PROVIDERS: ADMIT Internal Medicine; ATTEND Internal Medicine
PROC: HZ2ZZZZ Detoxification Services for Substance Abuse Treatment (ICD-10-PCS; principal; 2017-03-13)
DX: F10.230 Alcohol dependence with withdrawal, uncomplicated (principal); F14.20 Cocaine dependence, uncomplicated; F17.210 Nicotine dependence, cigarettes, uncomplicated; F19.24 Other psychoactive substance dependence with psychoactive substance-induced mood disorder; F31.9 Bipolar disorder, unspecified; F20.9 Schizophrenia, unspecified; I10 Essential (primary) hypertension; E11.8 Type 2 diabetes mellitus with unspecified complications; J45.20 Mild intermittent asthma, uncomplicated; G47.00 Insomnia, unspecified; Z79.4 Long term (current) use of insulin; Z79.84 Long term (current) use of oral hypoglycemic drugs; Z87.438 Personal history of other diseases of male genital organs; Z91.5 Personal history of self-harm
CPT/HCPCS: 36415; 80053; 81003; 85027; 85660; 86593; 93005; 93010